=== PATIENT | male | born 1985 | race African-American/Black ===

== ENCOUNTER 2018-08-20 18:05 | Emergency (ER) | payer OTHER ==
[~2018-08-20] VITALS: Ht 185.4 cm; Wt 106.6 kg
[~2018-08-20 18:05] MED LIST: ACETAMINOPHEN-1 EAC1 PO; ANAPROX DS550 MG PO; IBUPROFEN 800800 M1 PO; LIDOCAINE VISC100 M1 SWISH&SPIT; NOHOMEMEDICATIONS; PENICILLIN V P500 MG PO; ROBAXIN500 MG PO; TRAMADOL 50 MG50 MG PO
[2018-08-20] MEDS ORDERED: ACETAMINOPHEN-1 EAC1 PO (19:29)
[2018-08-20] MEDS ORDERED: MEDROLDOSEPACK PO (19:29)
[2018-08-20 19:49] VITALS: BP 129/93
== END 2018-08-20 19:49 | disposition home or self-care (01) ==
LOC: M.ERS 18:05
DX: M54.5 Low back pain (principal)